=== PATIENT | male | born 1950 | race Caucasian/White ===

== ENCOUNTER 2025-04-08 08:02 | Inpatient (IN) | payer MEDICARE, SELFPAY ==
[2025-04-06 20:54] VITALS: BP 163/87
[2025-04-06 21:00] VITALS: BP 172/76
[2025-04-06 21:10] LABS: Hematocrit 41.5 % (39.0-52.0); Hemoglobin 14.3 g/dL (13.0-18.0); Mean Corp Hgb Conc. 34.5 g/dL (33.0-37.0); Mean Corpuscular Volume 94.7 fL (80.0-94.0); Nucleated Red Blood Cells % 0 % (-); Platelet Count 214 10^3/uL (130-400); Red Cell Dist. Width 12.5 % (11.5-14.5)
[2025-04-06 21:22] VITALS: BMI 26.8
[2025-04-06 21:23] LABS: COVID-19 Antigen Negative (Negative)
[2025-04-06 21:31] LABS: ALT (SGPT) 27 U/L (0-50); AST (SGOT) 24 U/L (17-59); Albumin 4.2 g/dl (3.5-5.0); Alkaline Phosphatase 57 U/L (38-126); Blood Urea Nitrogen 21 mg/dl (9-20); Calcium 9.1 mg/dl (8.4-10.2); Carbon Dioxide 26 mmol/L (22-30); Chloride 103 mmol/L (98-107); Estimated Creatinine Clearance -3 ml/min; Glucose 156 mg/dl (70-99); Potassium 3.8 mmol/L (3.5-5.1); Sodium 135 mmol/L (135-145); Total Protein 6.7 g/dl (6.3-8.2); eGFR 53.40
--- NOTE | 2025-04-06 21:41 | ED.GENMED ---
History of Present Illness
General
Chief Complaint: Breathing Problem
Source: patient and spouse
Time Seen by Provider: 04/06/25 21:18
History of Present Illness
History of Present Illness:
This patient is a 74-year-old male presents emergency department complaints of shortness of breath. He states that he has a history of DVT in the past and just, and as a part of prophylaxis when traveling he takes 1 dose of Xarelto a few hours
before a flight. He returned from [place] on evening and felt well. However, the day before, he does state that he was in the hospital for many hours as a visitor with his brother and noted that he had URI-like symptoms including
rhinorrhea. He started taking Sudafed and his symptoms were markedly improved. He says he felt 'great' yesterday morning and in fact played a full round of golf and went out to dinner and had some drinks. By the end of the evening however he was
starting to feel very tired and felt like he might of 'over overdone it'. This morning he again noted that he did not feel that well, and he felt slightly short of breath which got progressively worse throughout the day. He did eat a full dinner.
He laid down to sleep and was sitting up but states that he gradually was laying flat and woke up somewhat abruptly feeling very short of breath. He is not having trouble swallowing but he does feel like his voice is a little hoarse. He denies
abdominal pain, chest pain or pressure, cough, fever, chills, back pain, neck pain, leg swelling, or other complaints.
Past History
Past History
ED Past Medical History: Other (DVT, hypercholesterolemia)
ED Past Surgical History: Other (Hernia, veins)
Social History
Tobacco: Non-smoker
Alcohol: Occasional
Drug: None
Personal:
Living: with family
Phy Exam
Physical Exam
Physical Exam:
GENERAL: Alert , in no apparent distress, nasal cannula in place, very pleasant
EYE: pupils equal and reactive, no photophobia
NECK: Supple, no significant adenopathy, no swelling noted.
ENT: o/p clr, mmm, uvula midline, no exudate, no erythema, no trismus, no drool patient has an occasional cough that sounds slightly croupy.
CARDIAC: Regular rate and rhythm .
LUNGS: Clear breath sounds bilaterally, no acute respiratory distress, no wheezes/rales/rhonchi
ABDOMEN: Soft, without focal tenderness, no r/g, no cvat
NEUROLOGICAL: Alert and oriented, no focal neuro deficits
SKIN: Warm and dry, skin intact.
MUSCULOSKELETAL: No edema, well perfused.
PSYCH: Normal and appropriate interaction.
Course
Orders/Labs/Results
Orders:
Orders
04/06/25 20:56
Electrocardiogram (*1) Urgent
Reason for Study: Other
Other Reason for Exam: Respiratory Distress
Cardiac Monitoring- Treatment ONCE
EKG- Treatment ONCE
IV Insert/Care/Rem.- Treatment PRN
CR Chest - 2 Views Urgent
Comment:
Reason For Exam: respiratory distress
O2 Therapy [RESP] Urgent
Titrate/Wean O2 to maintain O2 sat greater than (%): 93
Special Instructions: TO MAINTAIN CONTINUOUS O2 SATS >/= 93%
Pulse Ox/cont/shift [RESP] Urgent
Quantity: 1
Special Instructions: continuous pulse ox
04/06/25 20:58
COVID-19 Antigen Urgent
Source: Nasal Swab
Complete Blood Count/With Diff Urgent
Comprehensive Metabolic Panel Urgent
Influenza A+B Rapid Molecular Urgent
EDMAR Source: Nasal Swab
Specimen Description:
04/06/25 21:37
Neck Soft Tissue [CR Soft Tissue Neck ] Urgent
Comment:
Reason For Exam: hoarse, sob
04/06/25 21:38
Racepinephrine [Vaponefrin Nebs] 0.5 ml INH R NOW STA
04/06/25 21:47
NT-proBNP Urgent
Troponin I Urgent
04/06/25 21:53
Acetaminophen [Tylenol] 1,000 mg .ROUTE .STK-MED ONE
04/06/25 21:56
Acetaminophen [Tylenol] 1,000 mg PO NOW STA
04/06/25 22:28
Add On- LAB Urgent
Tests Added?: trop
04/06/25 22:39
CT Chest PE Study Urgent
Comment:
Reason For Exam: hx dvt, now sob
04/06/25 23:44
0.9% Sodium Chloride 500 ml [Nss] 500 ml IV BOLUS
Abnormal Lab Results
04/06/25
20:58
WBC 12.1 H 10^3/uL
(4.8-10.8)
RBC 4.38 L 10^6/uL
(4.70-6.10)
MCV 94.7 H fL
(80.0-94.0)
MCH 32.6 H pg
(27.0-31.0)
Absolute Neuts (auto) 9.1 H 10^3/uL
(1.4-6.5)
Absolute Monos (auto) 1.0 H 10^3/uL
(0.1-0.6)
Neutrophils % 75.4 H %
(42.2-75.2)
Lymphocytes % 14.3 L %
(20.5-51.1)
BUN 21 H mg/dl
(9-20)
Creatinine 1.4 H mg/dL
(0.7-1.3)
Glucose 156 H mg/dl
(70-99)
04/06/25 20:58
04/06/25 20:58
Vital Signs
Initial and Last Documented VS:
Initial Vital Signs
BP
163/87
04/06/25 20:54
Last Documented Vital Signs
Temp Pulse Resp BP Pulse Ox
99.9 F 82 30 143/81 95
04/06/25 22:17 04/06/25 23:16 04/06/25 23:16 04/06/25 23:16 04/06/25 22:01
*Pulse Oximetry
SaO2: 94
Update Note
Update Note:
Patient presents to the Emergency Department with ___URI symptoms and shortness of breath
Number and Complexity of Problems Addressed at the Encounter
� Chronic conditions affecting care:
� Acute Exacerbation and/or Progression of Chronic Illness:
� Differential Diagnosis includes:
Amount and/or Complexity of Data to be Reviewed and Analyzed
� I performed an independent evaluation of and my interpretation is:
EKG:
CT:Limited evaluation of the inferior segmental and subsegmental pulmonary arteries. Given this limitation, examination is negative for pulmonary embolism. No evidence for central pulmonary embolus.
Linear densities within the inferior aspect of the lingula and left lower lobe, compatible with discoid atelectasis and/or scarring.
Dependent atelectasis within the posterior lungs. There is no significant pleural effusion and no significant pericardial effusion.
Not mentioned above, coronary artery calcifications are present. Please correlate with symptoms of and risk factors for coronary artery disease, with further workup as clinically appropriate.
Xrays:cxr/ST NECK: On frontal chest radiograph, mild tapered narrowing of the subglottic trachea, and please correlate with any symptoms that would suggest croup.
Horizontal band of increased parenchymal opacity in the lateral aspect of the left lower lung on the frontal view, with main differential considerations of discoid atelectasis and/or scarring.
Epiglottis and aryepiglottic folds appear within normal limits. The prevertebral soft tissues are within normal limits.
Laboratory Studies: Troponin and BNP unremarkable, new renal insufficiency without prior for comparison but patient denies history of in the past, COVID and flu negative, leukocytosis consistent with suspected infection
Other:
� Review of other/old records reveals:
� Clinical information was obtained by an independent historian: at bedside
� Prescriptions/Medications Considered but not given:
� Further testing considered but not performed:
Risk of Complications and/or Morbidity or Mortality of Patient Management
� Social determinants of health affecting care:
� Discussion with other providers (PCP, Hospitalists, Consultants, etc):
� Escalation of care including admission/observation vs risk of discharge considered: No PE noted. Patient has mild hypoxia here relieved with 2 L of nasal cannula. Overall suspect tracheobronchitis as a cause of patient's
symptoms. Do not clinically suspect retropharyngeal abscess or epiglottitis. Patient is stable on nasal cannula without resting stridor, chest pain, dyspnea, etc. Recommendation for overnight observation, steroids, antibiotics, IV fluids. Case
discussed with hospitalist
ED Attending Note
-
Portions of this chart may have been created with voice recognition software.� Occasional wrong word or��sound alike� substitutions may have occurred due to the inherent limitations of voice recognition software.
Discharge Plan
Departure
Patient Disposition: Admit
Date of Disposition: 04/07/25
Time of Disposition: 00:44
Admit to: Telemetry
Presentation/result/management discussed w/ accepting MD/DO: Hospitalist
Discharge Problem:
Acute bronchitis, Acute renal insufficiency
Referrals:
Hamlet Booth DO [Other]
Interventions
Interventions:
*Risk Screen - Suicide Last Done: 04/06/25 21:00
*General Assessment Last Done: 04/06/25 21:00
*Neglect/Abuse Screening Last Done: 04/06/25 21:00
*ED- Fall Risk Assessment Last Done: 04/06/25 21:00
*ED COVID-19 Vaccine History Last Done: 04/06/25 21:00
ED- Cardiac Assessment Last Done: 04/06/25 21:00
ED- Pulmonary Assessment Last Done: 04/06/25 21:00
Discharge Date and Time
Print Language: MALAY
[2025-04-06] MEDS: TYLENOL 1000 MG PO (21:56)
[2025-04-06] MEDS: VAPONEFRIN NEBS 0.5 ML INH (21:58)
[2025-04-06 22:01] VITALS: BP 165/83
[2025-04-06 23:16] VITALS: BP 143/81
[2025-04-06 23:43] LABS: Troponin I < 0.012 ng/ml
[2025-04-06] MEDS: NSS 500 IV (23:53)
[2025-04-07] VITALS: BP 143/83
[2025-04-07] MEDS: UNASYN IV ×3 (01:39→11:54)
--- NOTE | 2025-04-07 01:44 | HPS.HSE ---
Family Physician
-
Family Physician: DO Hamlet Booth
Chief Complaint
-
Shortness of breath
History of Present Illness
This is a 74-year-old past medical history significant for hyperlipidemia and a prior episode of DVT x 2 in the setting of long-haul flight as well as varicose vein surgery presents to the emergency department with worsening shortness of breath.
Patient reported that he had just recently traveled back from [place]. He started feeling some cold and head congestion on Tuesday. By the time he arrived on his symptoms are getting worse and he took some Sudafed. On Tuesday he felt
better. When he woke up on Tuesday morning he says his symptoms had recurred with nonproductive cough and some chest congestion. Throughout today he felt increasing chest tightness. By the time he went to bed at night he was propping himself up
so that he did not have difficulty breathing. However he dozed off and when he woke up he was laying flat and was feeling very tight and having difficulty breathing.
He denied any cough. He denies any fevers or chills. Denies having any wheezing. Denies any lower extremity swelling. He denies any calf tenderness or chest pain. He did take his prophylactic Xarelto prior to his flight. He was in the hospital
during his treatment was exposed but he has no known specific sick contacts.
Patient denies any history of allergies. In the emergency department he was afebrile, blood pressure was 143/80 with a pulse of 76 and was satting 94% on room air. He had a temp of 99.9.
CBC shows a white count of 12.[address] His electrolytes were normal. Creatinine is slightly elevated at 1.4. ECG shows a normal sinus rhythm at rate of 80. No acute ST or T wave changes. Troponin was negative. BNP was
negative. COVID test was negative. Chest x-ray shows mild tapered narrowing of the subglottic trachea, and horizontal band of increased parenchymal opacity in the lateral aspect of the left lower lung on the frontal view which is consistent with
atelectasis.
CT PE study was negative for PE. No pneumonia.
While in the ED patient received racemic epinephrine and reported marked improvement in symptoms.
Medical History
Past Medical History
Past Medical History: Reports HTN, Hypercholesterolemia and Other (History of DVT)
Past Surgical History: Reports Appendectomy and Other (Bilateral hernia repair, varicose veins )
Social History
Tobacco: Non-smoker
Alcohol: Occasional
Drug: None
Personal:
Living: With Family
Family History
Family History: Not pertinent
Allergies / Home Medications
Allergies reflects when Allergies were last updated in [facility].
Home Medications with original date entered in [facility]
Allergy/Medication List:
Allergies
Allergy/AdvReac Type Severity Reaction Status Date / Time
No Known Allergies Allergy Verified 04/06/25 21:48
Atorvastatin 10 mg tablet, 10 mg p.o. at bedtime
Ezetimibe 10 mg tablet, 10 mg p.o. daily
Review of Systems
-
Constitutional: Reports No Symptoms
EENT: Reports No Symptoms
Respiratory: Reports Cough, Trouble Breathing and Other
Cardiac: Reports No Symptoms
Abdomen/GI: Reports No Symptoms
: Reports No Symptoms
Musculoskeletal: Reports No Symptoms
Skin: Reports No Symptoms
Neurological: Reports No Symptoms
Endocrine: Reports No Symptoms
Hematologic/Lymphatic: Reports No Symptoms
Psych: Reports No Symptoms
Physical Exam
Vital Signs
Vital Signs
Temp Pulse Resp BP Pulse Ox
99.9 F 76 18 143/83 94
04/06/25 22:17 04/07/25 01:02 04/07/25 01:02 04/07/25 00:00 04/07/25 01:02
Physical Exam
General: Well Developed, Well Nourished and No Apparent Distress
HEENT: NormoCephalic, Moist mucous membranes and Atraumatic
Respiratory: Clear and Other (no stridor); No Wheezes, Rales, Rhonchi or Crackles
Cardiac: S1/S2 and Regular Rhythm; No Murmur or Rub
GI: Soft, Non Tender, Non Distended and Normal Bowel Sounds; No Organomegaly
Rectal: Deferred by Provider
Musculoskeletal: No Clubbing, No Cyanosis and No Edema
Skin: No Rash
Neuro: AO x 3 and Nonfocal/grossly intact
Psych: Calm
Laboratory Results
-
04/06/25 20:58
04/06/25 20:58
Laboratory Results
Total Bilirubin 0.9 mg/dl (0.2-1.3) 04/06/25 20:58
AST 24 U/L (17-59) 04/06/25 20:58
ALT 27 U/L (0-50) 04/06/25 20:58
Alkaline Phosphatase 57 U/L (38-126) 04/06/25 20:58
Troponin I Cancelled 04/06/25 22:24
Data Reviewed
-
Diagnostic Radiology: Image Personally Visualized and interpreted and Report Reviewed by me
CT Scan: Report Reviewed by me
Medical Tests (Nuc Med, Echo, EKG etc): Image Personally Visualized and interpreted
Lab Data: Labs Reviewed by me
Old Records: Reviewed
Impression/Plan
-
IMPRESSION:
74-year-old with history of provoked DVTs status post anticoagulation in the past, hyperlipidemia who presented emergency department with recent upper respiratory symptoms and worsening shortness of breath with chest tightness over the last 24
hours. Has leukocytosis in the ED. There is no pulmonary embolism. There is no focal pulmonary consolidation. He had subglottic tracheal narrowing which is concerning for or laryngal bronchitis/tracheitis. Improved with racemic epinephrine but
still requiring 1 to 2 L of oxygen.
PLAN:
Tracheobronchitis/laryngitis
- Admit to MedSurg observation
-Decadron 8 mg x 1 now
-Albuterol every 6 hours [id number],
-Receiving epinephrine if recurrence of lung tightness
-Will continue with Unasyn for now for acute bronchitis
DVT prophylaxis with Lovenox subcu
CODE STATUS full code
[2025-04-07 02:49] VITALS: BP 149/83; BMI 26.2
[2025-04-07] MEDS: DECADRON 8 MG IV (04:51)
--- NOTE | 2025-04-07 06:09 | PTCARENOTE ---
Pt arrived to unit, AAOx3, self, ambulated to bed, 4 L O2. Pt was cooperative with the admit process, oriented to unit. Bed in lowest position, call kate in reach.
[2025-04-07] MEDS: VENTOLIN NEBULES 2.5 MG INH ×4 (07:45→19:58)
[2025-04-07 08:22] VITALS: BP 135/77
[2025-04-07 08:36] LABS: Hematocrit 41.3 % (39.0-52.0); Hemoglobin 14.1 g/dL (13.0-18.0); Mean Corp Hgb Conc. 34.1 g/dL (33.0-37.0); Mean Corpuscular Volume 96.0 fL (80.0-94.0); Platelet Count 220 10^3/uL (130-400); Red Cell Dist. Width 12.6 % (11.5-14.5)
[2025-04-07 09:08] LABS: Blood Urea Nitrogen 17 mg/dl (9-20); Calcium 8.9 mg/dl (8.4-10.2); Carbon Dioxide 23 mmol/L (22-30); Chloride 108 mmol/L (98-107); Estimated Creatinine Clearance 69 ml/min; Glucose 135 mg/dl (70-99); Potassium 4.5 mmol/L (3.5-5.1); Sodium 139 mmol/L (135-145); eGFR > 60.00
--- NOTE | 2025-04-07 13:33 | W.PN.HOSP.TC ---
Today's Communication/Plan
-
Steroids. Antibiotics.
Assessment / Plan
Assessment / Plan
Physical exam:
General: Well Developed, Well Nourished and No Apparent Distress
HEENT: Normocephalic, Atraumatic and Moist Mucous Membranes
Respiratory: Clear to Auscultation; Negative Wheezes, Rales or Rhonchi
Cardiac: Regular Rhythm and S1/S2
GI: Soft, Nontender and Nondistended
Musculoskeletal: No Clubbing, No Cyanosis and No Edema
Neuro: Awake, Alert and Oriented, no neuro deficits
Psych: Calm
A/P:
Shortness of breath/Acute Respiratory Insufficiency:
Etiology not entirely clear but suspect multifactorial with viral URI associated with bronchospasm; can not r/o vocal cord dysfunction or asthma (new onset) vs other.
Given IV steroids--> will start oral steroids now for a short course.
Given racemic epinephrine
Will also continue with bronchodilators
Incentive spirometry
Seen CTA of the chest and no evidence of pneumonia or PE but atelectasis
On IV antibiotics Unasyn but will switch to oral Azithromycin
Pulm consult-discussed with Pulm today
ENT consult today given narrowing of subglottis on images and concerns for vocal cord issues.
Wean oxygen
Check home oxygen needs
Discussed about discharge planning later today or tomorrow and patient prefers tomorrow which it is not unreasonable given severity of his dyspnea and bronchospasm upon admission.
DVT prophylaxis:
Lovenox SQ
CODE STATUS:
Full code
Anticipated Discharge: Within 24 hours
Subjective/Interval History
-
Date of Service: April 07, 2025
Patient feels better overall. On supplemental oxygen. No stridor or excessive salivation or dysphagia. Afebrile
Objective Data
-
Labs:
Laboratory Results
04/07/25
06:19
WBC 8.9
Hgb 14.1
Hct 41.3
Plt Count 220
Sodium 139
Potassium 4.5
Chloride 108 H
Carbon Dioxide 23
BUN 17
Creatinine 1.0
Glucose 135 H
Calcium 8.9
Vital Signs:
Vital Signs
Temp Pulse Resp BP Pulse Ox
98.3 F 81 16 135/77 96
04/07/25 08:22 04/07/25 11:32 04/07/25 11:32 04/07/25 08:22 04/07/25 11:32
I&O
04/06/25 04/07/25 04/08/25
06:59 06:59 06:59
Intake Total 120 / 120
Balance 120 / 120
--- NOTE | 2025-04-07 15:30 | CM ---
Met with patient at bedside
STILL form signed @ 1520
Family Physician verified: Dr. Hamlet Booth, DO; [place], [place]
Pharmacy verified: [facility] @ [address] [place] [address], [place] [address];
Lives w/ spouse; multilevel home; 14 steps to enter; 14 step to bedroom and Bathroom; bath has tub w/ shower
PLOF: independent with ambulation, stairs, and ADLs; retired; drives
NO SNF or Home Health utilization history
If discharged later today, he will take an UBER home; if discharged tomorrow, his will provide transport home
Plan: Discharge to home when medically stable; no needs anticipated
[2025-04-07 15:35] VITALS: BP 130/75
--- NOTE | 2025-04-07 15:58 | CON.PUL ---
Consultation
Consultation Request
Date/Time Consultation Requested: 04/07/2025836
Date/Time Consultation Performed: 04/07/2025909
Requesting Provider: Dr. Brasher
Performing Provider: Dr. Byrd
Reason for Consultation: SOB/hypoxia
Medical History
-
Chief Complaint: SOB
History of Present Illness:
74-year-old M with PMHx of HLD who p/w SOB. Pt recently went to [place] to visit his brother who has MM. He returned home on 04/04. Prior to him returning he did have a runny nose that he developed on Tuesday. Tuesday he felt well, he
even played golf and felt fine. Tuesday night he started to feel more sick, and then tuesday his Sx worsened with an episode of severe SOB with wheezing, difficulty speaking and anxiety tuesday evening. This is what brought him in to the ER. CTA
chest was negative for an acute PE, and showed atelectasis in the lingula and LLL. No pneumonia seen either. He was admitted to hospitalist service with Abx and steroids started, and now pulmonary consulted for further recs.
When I saw the pt he was feeling much better. On room air breathing comfortably. Trop negative x1, BNP 51. Absolute eos 200. He said he could not breathe at all tuesday night and thats never happened to him before. Currently saturating 93% on
room air. Denies chest pain, WARE, abd pain, N/V/f/c.
PMHx:HLD, Hx of DVT s/p long flight and varicose vein surgery prior
PSHx: Appendectomy, bilateral hernia repair, varicose veins
Past Medical History
Past Medical History: Other (Above as per HPI)
Past Surgical History: Other (Above as per HPI)
Social History
Tobacco: Non-smoker
Alcohol: Occasional
Drug: None
Personal:
Living: With Family
Family History
Family History: Reviewed & Not Pertinent
Allergies / Home Medications
Allergies
Allergy/AdvReac Type Severity Reaction Status Date / Time
No Known Allergies Allergy Verified 04/06/25 21:48
Review of Systems
-
History Source: Patient
All other systems: Negative unless noted
Vitals / Labs / Diagnostic Testing
Vital Signs
Temp Pulse Resp BP Pulse Ox
98.3 F 67 20 135/77 95
04/07/25 08:22 04/07/25 08:22 04/07/25 08:22 04/07/25 08:22 04/07/25 08:22
Lab Data
04/07/25 06:19
04/07/25 06:19
Microbiology
04/06/25 20:58 Nasal Swab Influenza Types A & B (CAROL) - Final
Negative for Influenza A & B, NAAT
Negative results must be combined with clinical observations
and patient history.
Nucleic Acid Amplification test (NAAT)performed on the
[employer] NOW platform.
Diagnostic Testing:
Physical Exam
-
HEENT: Normocephalic and Anicteric
Cardiovascular: S1/S2 and Peripheral Edema (negative)
Respiratory: Wheeze (negative), Rales (bibasilar (L>R)), Rhonchi (negative) and Non-Labored Respirations
GI: Soft, Non Distended, Non Tender and Normal Bowel Sounds
Neurology: AO x 3 and Tremors (negative)
Skin: Warm and Dry
General: Respiratory Distress (negative), Comfortable, Fever (negative) and Chills (negative)
Assessment
-
Assessment: 74-year-old M with PMHx of HLD who p/w SOB. Pt recently went to [place] to visit his brother who has MM. He returned home on 04/04. Prior to him returning he did have a runny nose that he developed on Tuesday. Tuesday he
felt well, he even played golf and felt fine. Tuesday night he started to feel more sick, and then tuesday his Sx worsened with an episode of severe SOB with wheezing, difficulty speaking and anxiety tuesday evening. This is what brought him in
to the ER. CTA chest was negative for an acute PE, and showed atelectasis in the lingula and LLL. No pneumonia seen either. He was admitted to hospitalist service with Abx and steroids started, and now pulmonary consulted for further recs.
Chronic conditions [employer]: HLD, Hx of DVT s/p long flight and varicose vein surgery prior
Impression:
#SOB + cough with suspected bronchospasm vs vocal cord dysfunction vs asthmatic bronchitis
#Recent URI
#Acute hypoxic respiratory failure
#Atelectasis
#JAYCOB - now improved
Plan:
- Given his recent URI Sx with paroxysmal nature of his symptoms, I believe he had either an acute broncho-/laryngospasm vs vocal cord dysfunction
- He did feel upper chest/neck tightness when his Sx first began, making VCD very likely, however I agree with treating him with systemic steroids and albuterol given he was wheezing and SOB, hence asthmatic bronchitis also on differential
- He does not carry a Hx of asthma or COPD
- Check walking pulse oximetry prior to discharge given he is still hypoxic on room air, with sats 93% today (04/07)
- Continue with prednisone 40mg daily, with short course; would give x 5 days then stop
- Given recent URI, agree with z-pack; he is s/p 2 days of Unasyn; no need to restart this at this time as he is improved
- Maintain SpO2 >90-94% with supplemental O2 as needed
- prn nebulized bronchodilators - not currently bronchospastic
- Incentive spirometer encouraged q1hr while awake
- Replete electrolytes with K>4, Mg>2
- Trend H/H and transfuse if needed to keep Hb>7g/dL; keep plt>20k, unless there is concern for bleeding then keep plt>50k
- Maintain euglycemia with goal BG >100 and <180
- DVT ppx
Pulmonary service will continue to follow along. Believe he can go home within next 24 hours, and outpatient pulmonary follow up will be arranged.
[2025-04-07] MEDS: DELTASONE 40 MG PO (17:28)
[2025-04-07] MEDS: ZITHROMAX 500 MG PO (17:28)
[2025-04-07] MEDS: LOVENOX 40 MG SC (17:29)
[2025-04-07 23:11] VITALS: BP 115/59
[2025-04-08 07:00] VITALS: BP 123/79
[2025-04-08] MEDS: VENTOLIN NEBULES 2.5 MG INH ×2 (07:35→11:06)
[2025-04-08 07:40] LABS: Hematocrit 38.6 % (39.0-52.0); Hemoglobin 13.5 g/dL (13.0-18.0); Mean Corp Hgb Conc. 35.0 g/dL (33.0-37.0); Mean Corpuscular Volume 97.0 fL (80.0-94.0); Nucleated Red Blood Cells % 0 % (-); Platelet Count 215 10^3/uL (130-400); Red Cell Dist. Width 12.8 % (11.5-14.5)
[2025-04-08 08:11] LABS: Blood Urea Nitrogen 22 mg/dl (9-20); Calcium 8.9 mg/dl (8.4-10.2); Carbon Dioxide 24 mmol/L (22-30); Chloride 109 mmol/L (98-107); Estimated Creatinine Clearance 77 ml/min; Glucose 126 mg/dl (70-99); Potassium 4.7 mmol/L (3.5-5.1); Sodium 139 mmol/L (135-145); eGFR > 60.00
[2025-04-08] MEDS: DELTASONE 40 MG PO (08:34)
[2025-04-08] MEDS: ZITHROMAX 500 MG PO (08:34)
--- NOTE | 2025-04-08 09:05 | W.PN.HOSP.TC ---
Today's Communication/Plan
-
dc
Assessment / Plan
Assessment / Plan
74yo M with PMHx of HLD came with dyspnea and found acute bronchitis with reactive airway diesease, cannot r/o asthma, improved on steroids and Zpack. As per [employer] Superintendent - will need outpatient PFT. Not hypoxic on the day of D/C with min imal
wheezing. XR neck on admission concerning for laryngeal inflammation, possible epiglotitis and patient with some hoarsnes, but that is also improving. JAYCOB on admission which resolved onIVF. CT chest without VTE, however with some atelectasis.
Medcially stable for d/c home
A/P:
#Acute hypoxic respiratory failure on admission 2/2 acutbronchitis
#Reactive airway disease
#Atelectasis
COVID_19, Influenza neg
Zpack for antiinflammatory properties
Bronchodilators
Steroids taper
Pulm: outpatient PFT
Weaned off O2
#Concern for epiglottitis on admission
ENT evaluated: resolved
most likely inflammation due to URI
No concern for jennifer croup on the day of d/c. Patient without symptoms of laryngospasm
#JAYCOB
2/2 dehydration
resolved
#Mild Scheuermann's disease
PT/OT
#L renal cyst
no folow up advised
DVT ppx lovenox
Full code
I have spent at least 38min reviewign chart, test results, communication with consultants and providing direct patient care
Anticipated Discharge: Today
Subjective/Interval History
-
Date of Service: April 08, 2025
Objective Data
-
Labs:
Laboratory Results
04/08/25
06:33
WBC 10.8
Hgb 13.5
Hct 38.6 L
Plt Count 215
Sodium 139
Potassium 4.7
Chloride 109 H
Carbon Dioxide 24
BUN 22 H
Creatinine 0.9
Glucose 126 H
Calcium 8.9
Vital Signs:
Vital Signs
Temp Pulse Resp BP Pulse Ox
98.5 F 71 14 123/79 93
04/08/25 07:00 04/08/25 07:37 04/08/25 07:37 04/08/25 07:00 04/08/25 07:37
I&O
04/07/25 04/08/25 04/09/25
06:59 06:59 06:59
Intake Total 120 / 120 1620 / 1620
Output Total 0 / 0
Balance 120 / 120 1620 / 1620
Review of Systems
-
History Source: Patient
All other systems: Reviewed and negative
Physical Exam
-
General: No Apparent Distress
HEENT: Normocephalic
Respiratory: Clear to Auscultation; Negative Crackles
Cardiac: Regular Rhythm; Negative Murmur
GI: Soft, Nontender and Nondistended
Musculoskeletal: No Clubbing, No Cyanosis and No Edema
Neuro: Awake, Alert, Oriented and AO x 3
Psych: Calm
--- NOTE | 2025-04-08 10:47 | W.DCSUMMARY ---
Discharge Summary
Discharge Data
Date of Admission: 04/08/25
Date of Discharge: 04/08/25
-
Pending Results: No
Hospital Course
74yo M with PMHx of HLD came with dyspnea and found acute bronchitis with reactive airway diesease, cannot r/o asthma, improved on steroids and Zpack. As per Lot Attendant - will need outpatient PFT. Not hypoxic on the day of D/C with min imal
wheezing. XR neck on admission concerning for laryngeal inflammation, possible epiglotitis and patient with some hoarsnes, but that is also improving. JAYCOB on admission which resolved onIVF. CT chest without VTE, however with some atelectasis.
Medically stable for d/c home
I have spent at least 38min reviewing chart, test results, communication with consultants and providing direct patient care
Patient was managed for:
#Acute hypoxic respiratory failure on admission 2/2 acute bronchitis
#Reactive airway disease
#Atelectasis
#Concern for epiglottitis on admission
#JAYCOB
#Mild Scheuermann's disease
#L renal cyst
Discharge Plan
-
Patient Disposition: Home (Routine Discharge)
Discharge Diagnosis/Procedures: Acute tracheobronchitis and laryngitis. Shortness of breath. Hypoxia.
Diet: Low Cholesterol
Activity: As tolerated
Blood Work: Please PCP to order CBC, BMP within 1 week
Referrals:
Hamlet Booth DO [Other] - in less than 1 week
Hamlet Booth DO [Other] - in less than 1 week
Drew Byrd MD [Active, Pulmonary Medicine] - in two to three weeks
Referral Note: full PFT on day of office visit
Prescriptions:
New
azithromycin 250 mg Tablet
500 mg PO DAILY Qty: 3 0RF
albuterol sulfate [Ventolin HFA] 90 mcg/actuation HFA aerosol inhaler
2 puff inhalation Q6H PRN (Reason: shortness of breath or wheezing) Qty: 6.7 0RF
prednisone 10 mg Tablet
See Rx Instructions .ROUTE .COMPLEX Qty: 22 0RF
Rx Instructions:
Take By Mouth:
40 mg daily x1 days, 30 mg daily x3 days,
20 mg daily x3 days, 10 mg daily x3 days.
Discharge Orders:
Discharge Patient (As Directed); Ordered 04/08/25
Ordered By: Bar Craig
Discharge Date and Time
Print Language: POLISH
--- NOTE | 2025-04-08 11:23 | CM ---
Patient for d/c today
LOC changed to IP today. Updated patient as he had concerns about STILL form and obs status
IMM verbally reviewed, copy provided, copy on chart
Plan: Home, no needs
--- NOTE | 2025-04-08 11:38 | W.PN.PUL3 ---
Today's Communication / Plan
-
Prednisone course total 5d
Z pack.
pulmonary follow up
sign off.
Assessment
-
Assessment: 74-year-old M with PMHx of HLD who p/w SOB. Pt recently went to [place] to visit his brother who has MM. He returned home on 04/04. Prior to him returning he did have a runny nose that he developed on Tuesday. Tuesday he
felt well, he even played golf and felt fine. Tuesday night he started to feel more sick, and then tuesday his Sx worsened with an episode of severe SOB with wheezing, difficulty speaking and anxiety tuesday evening. This is what brought him in
to the ER. CTA chest was negative for an acute PE, and showed atelectasis in the lingula and LLL. No pneumonia seen either. He was admitted to hospitalist service with Abx and steroids started, and now pulmonary consulted for further recs.
Chronic conditions CONSULTING PSYCHIATRIST: HLD, Hx of DVT s/p long flight and varicose vein surgery prior
Impression:
#SOB + cough with suspected bronchospasm vs vocal cord dysfunction vs asthmatic bronchitis
#Recent URI
#Acute hypoxic respiratory failure
#Atelectasis
#JAYCOB - now improved
Plan:
- Given his recent URI Sx with paroxysmal nature of his symptoms, Differential diagnosis includes: acute broncho-/laryngospasm vs vocal cord dysfunctio.
- He did feel upper chest/neck tightness when his Sx first began, making VCD very likely, however I agree with treating him with systemic steroids and albuterol given he was wheezing and SOB, hence asthmatic bronchitis also on differential
- He does not carry a Hx of asthma or COPD
- symptoms improved
- on RA comfortable, ambulatory/
-clear lung exam.
- Continue with prednisone 40mg daily, with short course; would give x 5 days then stop
- Given recent URI, agree with z-pack;
- Incentive spirometer encouraged q1hr while awake
- DC planning today.
-Will sign off.
Outpx pulmonary follow up within two weeks.
Subjective Data
-
Date of Service:
Date of Service: April 08, 2025
Chief Complaint: Pulmonary Follow Up (Asthmatic bronchitis)
Subjective:
Feels better.
No additional complaints
Was able to ambulate to restroom without problems
minimal upper airway phlegm.
Review of Systems
Cardiopulmonary: Dyspnea (n), Cough and Sputum Production (n)
Objective Data
Data Reviewed
Vital Signs / I&O / Oxygen:
Vital Signs
Temp Pulse Resp BP Pulse Ox
98.5 F 90 15 123/79 93
04/08/25 07:00 04/08/25 11:09 04/08/25 11:09 04/08/25 07:00 04/08/25 11:09
Intake and Output
04/07/25 04/08/25 04/09/25
06:59 06:59 06:59
Intake Total 120 / 120 1620 / 1620
Output Total 0 / 0
Balance 120 / 120 1620 / 1620
SaO2 93
Nasal Cannula flow liters per 3
minute
Physical Exam
General: Comfortable and Other (able to speak in full sentences.)
HEENT: Normocephalic and Other (no stridor on exam)
Cardiovascular: S1-S2
Respiratory: Clear and Non-Labored Respirations
GI: Soft and Distended
Neurology: Awake
Labs/Micro/Reports
Lab Data
04/08/25 06:33
04/08/25 06:33
Microbiology
04/08/25 09:14 Nasalpharynx Respiratory Syncytial Virus Ag - Final
Negative for Respiratory Syncytial Virus.
A false negative result may be obtained with a specimen
collected early in the acute phase. If symptoms persist, a
new specimen should be tested.
04/06/25 20:58 Nasal Swab Influenza Types A & B ([facility]) - Final
Negative for Influenza A & B, NAAT
Negative results must be combined with clinical observations
and patient history.
Nucleic Acid Amplification test (NAAT)performed on the
[employer] platform.
[2025-04-08 13:00] VITALS: BP 114/80
== END 2025-04-08 13:18 | disposition home or self-care (01) | DRG 189 ==
LOC: 4 WEST ACU 08:02
PROVIDERS: Emergency Medicine; Hospitalist; ADMITTING PHYSICIAN Internal Medicine; ATTENDING PHYSICIAN Internal Medicine; CONSULT PHYSICIAN Internal Medicine Critical Care Medicine; CONSULT PHYSICIAN Otolaryngology; EMERGENCY PHYSICIAN Emergency Medicine
DX: J96.01 Acute respiratory failure with hypoxia (principal); J98.11 Atelectasis; N17.9 Acute kidney failure, unspecified; J20.9 Acute bronchitis, unspecified; J45.909 Unspecified asthma, uncomplicated; M42.00 Juvenile osteochondrosis of spine, site unspecified; N28.1 Cyst of kidney, acquired; E78.00 Pure hypercholesterolemia, unspecified; I10 Essential (primary) hypertension; Z86.718 Personal history of other venous thrombosis and embolism; Z90.49 Acquired absence of other specified parts of digestive tract; J04.0 Acute laryngitis; Z79.899 Other long term (current) drug therapy; Z11.52 Encounter for screening for COVID-19
CPT/HCPCS: 70360; 71046; 71275; 80048; 80053; 83880; 84484; 85025; 85027; 87502; 87807; 87811; 93005; 94640; 94760; 96361; 96365; 99285; Q9967